=== PATIENT | male | born 1985 | race Caucasian/White ===

== ENCOUNTER 2017-02-15 10:37 | Emergency (ER) | payer SELFPAY ==
--- NOTE | 2017-02-15 11:43 | ED CLINICAL REPORT ---
Clinical Report - Physicians/Mid Levels [facility] [address] [place] [address] 02/15/2017 10:41 Patient: EMANI MCDONALD Time Seen: 10:47. Arrived- By private vehicle. Historian- patient. HISTORY OF PRESENT ILLNESS Chief Complaint: SORE THROAT. This started about 4 - 5 days ago and is still present. It was gradual in onset and has been constant. Pain described as moderate. The patient has had a severe sore throat with pain upon swallowing. Similar symptoms previously: Several times. Diagnosed as streptococcal infection; peritonsillar abcess. REVIEW OF SYSTEMS No chills, fever, sweats, calf pain or chest pain. No cough, difficulty breathing, pedal edema, palpitations or abdominal pain. No constipation, diarrhea, nausea, vomiting or urinary problems. No skin rash. All systems otherwise negative, except as recorded above. SOCIAL HISTORY Current every day light tobacco smoker (cigarette)- less than 1/2 a pack per day. No alcohol use or drug use. FAMILY HISTORY Denies family medical history. ADDITIONAL NOTES The nursing notes have been reviewed. PHYSICAL EXAM Vital Signs: 02/15/2017 10:49 BP: 135/93. HR: 90. RR: 16. O2 saturation: 99%. Temp: 98.5 F. Pain level now: 7/10. Have been reviewed. Appearance: Alert. No acute distress. Eyes: Pupils equal, round and reactive to light. ENT: Ears normal. Nose normal. Pharyngeal erythema. Medium sized right-sided peritonsillar mass. No trismus present. Neck: Mild right anterior neck lymphadenopathy present. Trachea midline. Thyroid normal. Neck supple. CVS: Normal heart rate and rhythm. Heart sounds normal. Respiratory: No respiratory distress. Breath sounds normal. Abdomen: Soft. No organomegaly. Skin: Normal skin color. No rash. Normal skin turgor. Extremities: Extremities exhibit normal ROM. Extremities nontender. No calf tenderness. LABS, X-RAYS, AND EKG Laboratory Tests: Culture, Strep Screen: (THIAGO: 02/15/2017 10:55) ( MsgRcvd 02/15/2017 11:08) Final results Test Result Flag Units (Reference) RAPID STREP SCREEN - THROAT DATE: 02/15/17 NEGATIVE SCREEN: 1 . PROGRESS AND PROCEDURES Course of Care: Patient is stable. Patient/family counseled. Old medical records ordered. Old records unavailable. Disposition: Discharged. Condition: stable. CLINICAL IMPRESSION Right peritonsillar abscess. INSTRUCTIONS No driving or operating machinery while taking medication. Drink plenty of fluids. Warnings: Further evaluation is necessary. GENERAL WARNINGS: Return or contact your physician immediately if your condition worsens or changes unexpectedly, if not improving as expected, or if other problems arise. Prescription Medications: Hydrocodone/APAP 5mg/325mg: take 1 to 2 orally every 6 hours as needed for pain. Dispense fifteen (15). No refills. Zithromax 250 mg tablets: take 2 orally today, followed by 1 daily for the next 4 days. No refills. Substitution is permissible. Understanding of the discharge instructions verbalized by patient. Follow-up with: Marquis Agarwal MD, ENT, , [address], , [place], [id number] Follow up tomorrow. Call for the next available appointment. (Electronically signed by Arnold Anderson MD 02/15/2017 13:32)
--- NOTE | 2017-02-15 11:43 | ED ORDER SUMMARY ---
..... Patient: EMANI MCDONALD OrderSheet Located Within [facility] VisitID: [id number] [place] [address] 31y, M Registration Date/Time: 02/15/2017 ORDER SHEET Weight: 81.6 kg (stated) Allergies: Penicillins GENERAL ORDERS: Culture, Strep Screen Urgent (10:48 02/15/2017 Brayden RO) (Ack 10:50 PWeiler ER Tech1) (10:55 MWinterer R.N.) Monoscreen Urgent (11:11 02/15/2017 Brayden RO) (Ack 11:13 PWeiler ER Tech1) (11:45 MWinterer R.N.) MEDICATION ORDERS: Decadron IM 20 mg (NOW) (11:31 02/15/2017 Brayden RO) (Ack 11:37 MWinterer R.N.) (11:46 MWinterer R.N.) IV FLUIDS: ORDER SHEET NOTES: [Electronically signed by Ana Gamboa R.N. (12:47 02/15/2017)] [Electronically signed by Arnold Anderson MD (13:32 02/15/2017)] [Electronically locked/signed by Ana Gamboa R.N. (12:47 02/15/2017)]
--- NOTE | 2017-02-15 11:43 | ED NURSING NOTES ---
Clinical Report - Nurses [facility] [address] [place] [address] 02/15/2017 10:41 Patient: EMANI MCDONALD TRIAGE Acuity: LEVEL 4. Chief Complaint: SORE THROAT. Alert. No acute distress. SEPSIS SCREEN: Sepsis Screen. Negative (no infection suspected/documented). --10:52 Ana Gamboa R.N. 10:49 02/15/17. BP: 135/93. HR: 90. RR: 16. O2 saturation: 99% on room air. Temp: 98.5 F (oral). Pain level now: 03/07. --10:52 Ana Gamboa R.N. Weight: 81.6 kg stated. Height/Length: 68 inches Per Patient. BMI: 27.4. --10:50 Ana Gamboa R.N. Medications None. --10:50 Ana Gamboa R.N. Medication/allergy information source: the patient. --10:52 Ana Gamboa R.N. Allergies Penicillins. --10:50 Ana Gamboa R.N. History Arrived by private vehicle. Historian: patient. Accompanied by brother. Primary physician (NONE). Onset. (4 days ago). 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 PAST MEDICAL HX: Immunizations: up-to-date. SOCIAL HX: Current every day light tobacco smoker- less than 1/2 a pack per day. No alcohol use or drug use. FALL RISK ASSESSMENT: Fall risk assessment completed. No fall risk identified. NUTRITIONAL RISK ASSESSMENT: The nutritional risk assessment revealed no deficiencies. FUNCTIONAL ASSESSMENT: Functional assessment: no impairments noted. LEARNING NEEDS ASSESSMENT: The learning needs assessment revealed no barriers. SKIN INTEGRITY ASSESSMENT: Skin integrity risk assessment completed. No skin integrity risk identified. --10:52 Ana Gamboa R.N. Assessment GENERAL / NEURO / PSYCH: Alert. Oriented X 4. Appears in no acute distress. Patient appears calm and cooperative. RESPIRATORY: Respirations not labored. CVS: Capillary refill less than 2 seconds. GI / : Abdomen soft and nontender. SKIN: Mucous membranes are pink. Skin is warm and dry. --10:52 Ana Gamboa R.N. Interventions ID band on patient. To treatment room. --10:52 Ana Gamboa R.N. NURSING PROGRESS NOTES 10:55 02/15/17. Checked patient name and birthdate: patient confirmed. Throat swab obtained for rapid strep; labeled in the presence of the patient and sent to lab. --10:55 Ana Gamboa R.N. 11:46 02/15/2017 Decadron (Dexamethasone Sodium Phosphate) IM 20 mg given. Given in the right gluteus anitha (split dose). Allergies verified and confirmed 5 rights. --11:46 Ana Gamboa R.N. DISPOSITION / DISCHARGE Departure time: 11:50 Feb 15 2017. Condition at departure: improved and stable. No learning barriers present. Discharge instructions provided and reviewed with the patient. Reviewed medication(s) side effects, precautions, dosing and course information. Prescription(s) given to the patient. Patient verbalized understanding. Written instructions provided in Dutch. The patient was discharged by the physician. He was discharged home. He left the Emergency Department ambulatory and via private vehicle. Patient driving. --12:47 Ana Gamboa R.N. Locked/Released at 02/15/2017 12:47 by Ana Gamboa R.N.
--- NOTE | 2017-02-15 11:43 | ED NURSING NOTES ---
Clinical Report - Nurses [facility] [address] [place] [address] 02/15/2017 10:41 Patient: EMANI MCDONALD TRIAGE Acuity: LEVEL 4. Chief Complaint: SORE THROAT. Alert. No acute distress. SEPSIS SCREEN: Sepsis Screen. Negative (no infection suspected/documented). --10:52 Ana Gamboa R.N. 10:49 02/15/17. BP: 135/93. HR: 90. RR: 16. O2 saturation: 99% on room air. Temp: 98.5 F (oral). Pain level now: 03/07. --10:52 Ana Gamboa R.N. Weight: 81.6 kg stated. Height/Length: 68 inches Per Patient. BMI: 27.4. --10:50 Ana Gamboa R.N. Medications None. --10:50 Ana Gamboa R.N. Medication/allergy information source: the patient. --10:52 Ana Gamboa R.N. Allergies Penicillins. --10:50 Ana Gamboa R.N. History Arrived by private vehicle. Historian: patient. Accompanied by brother. Primary physician (NONE). Onset. (4 days ago). 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 PAST MEDICAL HX: Immunizations: up-to-date. SOCIAL HX: Current every day light tobacco smoker- less than 1/2 a pack per day. No alcohol use or drug use. FALL RISK ASSESSMENT: Fall risk assessment completed. No fall risk identified. NUTRITIONAL RISK ASSESSMENT: The nutritional risk assessment revealed no deficiencies. FUNCTIONAL ASSESSMENT: Functional assessment: no impairments noted. LEARNING NEEDS ASSESSMENT: The learning needs assessment revealed no barriers. SKIN INTEGRITY ASSESSMENT: Skin integrity risk assessment completed. No skin integrity risk identified. --10:52 Ana Gamboa R.N. Assessment GENERAL / NEURO / PSYCH: Alert. Oriented X 4. Appears in no acute distress. Patient appears calm and cooperative. RESPIRATORY: Respirations not labored. CVS: Capillary refill less than 2 seconds. GI / : Abdomen soft and nontender. SKIN: Mucous membranes are pink. Skin is warm and dry. --10:52 Ana Gamboa R.N. Interventions ID band on patient. To treatment room. --10:52 Ana Gamboa R.N. NURSING PROGRESS NOTES 10:55 02/15/17. Checked patient name and birthdate: patient confirmed. Throat swab obtained for rapid strep; labeled in the presence of the patient and sent to lab. --10:55 Ana Gamboa R.N. 11:46 02/15/2017 Decadron (Dexamethasone Sodium Phosphate) IM 20 mg given. Given in the right gluteus anitha (split dose). Allergies verified and confirmed 5 rights. --11:46 Ana Gamboa R.N. DISPOSITION / DISCHARGE Departure time: 11:50 Feb 15 2017. Condition at departure: improved and stable. No learning barriers present. Discharge instructions provided and reviewed with the patient. Reviewed medication(s) side effects, precautions, dosing and course information. Prescription(s) given to the patient. Patient verbalized understanding. Written instructions provided in Montenegrin. The patient was discharged by the physician. He was discharged home. He left the Emergency Department ambulatory and via private vehicle. Patient driving. --12:47 Ana Gamboa R.N. Locked/Released at 02/15/2017 12:47 by Ana Gamboa R.N.
--- NOTE | 2017-02-15 11:43 | ED ORDER SUMMARY ---
..... Patient: EMANI MCDONALD OrderSheet [facility] VisitID: [id number] [place] [address] 31y, M Registration Date/Time: 02/15/2017 ORDER SHEET Weight: 81.6 kg (stated) Allergies: Penicillins GENERAL ORDERS: Culture, Strep Screen Urgent (10:48 02/15/2017 Brayden RO) (Ack 10:50 PWeiler ER Tech1) (10:55 MWinterer R.N.) Monoscreen Urgent (11:11 02/15/2017 Brayden RO) (Ack 11:13 PWeiler ER Tech1) (11:45 MWinterer R.N.) MEDICATION ORDERS: Decadron IM 20 mg (NOW) (11:31 02/15/2017 Bray[address] RO) (Ack 11:37 MWinterer R.N.) (11:46 MWinterer R.N.) IV FLUIDS: ORDER SHEET NOTES: [Electronically signed by Ana Gamboa R.N. (12:47 02/15/2017)] [Electronically signed by Arnold Anderson MD (13:32 02/15/2017)] [Electronically locked/signed by Ana Gamboa R.N. (12:47 02/15/2017)]
--- NOTE | 2017-02-15 11:43 | ED CLINICAL REPORT ---
Clinical Report - Physicians/Mid Levels [facility] [address] [place] [address] 02/15/2017 10:41 Patient: EMANI MCDONALD Time Seen: 10:47. Arrived- By private vehicle. Historian- patient. HISTORY OF PRESENT ILLNESS Chief Complaint: SORE THROAT. This started about 4 - 5 days ago and is still present. It was gradual in onset and has been constant. Pain described as moderate. The patient has had a severe sore throat with pain upon swallowing. Similar symptoms previously: Several times. Diagnosed as streptococcal infection; peritonsillar abcess. REVIEW OF SYSTEMS No chills, fever, sweats, calf pain or chest pain. No cough, difficulty breathing, pedal edema, palpitations or abdominal pain. No constipation, diarrhea, nausea, vomiting or urinary problems. No skin rash. All systems otherwise negative, except as recorded above. SOCIAL HISTORY Current every day light tobacco smoker (cigarette)- less than 1/2 a pack per day. No alcohol use or drug use. FAMILY HISTORY Denies family medical history. ADDITIONAL NOTES The nursing notes have been reviewed. PHYSICAL EXAM Vital Signs: 02/15/2017 10:49 BP: 135/93. HR: 90. RR: 16. O2 saturation: 99%. Temp: 98.5 F. Pain level now: 7/10. Have been reviewed. Appearance: Alert. No acute distress. Eyes: Pupils equal, round and reactive to light. ENT: Ears normal. Nose normal. Pharyngeal erythema. Medium sized right-sided peritonsillar mass. No trismus present. Neck: Mild right anterior neck lymphadenopathy present. Trachea midline. Thyroid normal. Neck supple. CVS: Normal heart rate and rhythm. Heart sounds normal. Respiratory: No respiratory distress. Breath sounds normal. Abdomen: Soft. No organomegaly. Skin: Normal skin color. No rash. Normal skin turgor. Extremities: Extremities exhibit normal ROM. Extremities nontender. No calf tenderness. LABS, X-RAYS, AND EKG Laboratory Tests: Culture, Strep Screen: (THIAGO: 02/15/2017 10:55) ( MsgRcvd 02/15/2017 11:08) Final results Test Result Flag Units (Reference) RAPID STREP SCREEN - THROAT DATE: 02/15/17 NEGATIVE SCREEN: 1 . PROGRESS AND PROCEDURES Course of Care: Patient is stable. Patient/family counseled. Old medical records ordered. Old records unavailable. Disposition: Discharged. Condition: stable. CLINICAL IMPRESSION Right peritonsillar abscess. INSTRUCTIONS No driving or operating machinery while taking medication. Drink plenty of fluids. Warnings: Further evaluation is necessary. GENERAL WARNINGS: Return or contact your physician immediately if your condition worsens or changes unexpectedly, if not improving as expected, or if other problems arise. Prescription Medications: Hydrocodone/APAP 5mg/325mg: take 1 to 2 orally every 6 hours as needed for pain. Dispense fifteen (15). No refills. Zithromax 250 mg tablets: take 2 orally today, followed by 1 daily for the next 4 days. No refills. Substitution is permissible. Understanding of the discharge instructions verbalized by patient. Follow-up with: Marquis Agarwal MD, ENT, , [address], , [place], [id number] Follow up tomorrow. Call for the next available appointment. (Electronically signed by Arnold Anderson MD 02/15/2017 13:32)
--- NOTE | 2017-02-15 13:32 | ED DISCHARGE INSTRUCTIONS ---
Patient: EMANI MCDONALD General Instructions [facility] VisitID: [id number] [address] [place] [address] 31y, M Registration Date/Time: 02/15/2017 Right peritonsillar abscess. INSTRUCTIONS No driving or operating machinery while taking medication. Drink plenty of fluids. Warnings: Further evaluation is necessary. GENERAL WARNINGS: Return or contact your physician immediately if your condition worsens or changes unexpectedly, if not improving as expected, or if other problems arise. Prescription Medications: Hydrocodone/APAP 5mg/325mg: take 1 to 2 orally every 6 hours as needed for pain. Dispense fifteen (15). No refills. Zithromax 250 mg tablets: take 2 orally today, followed by 1 daily for the next 4 days. No refills. Substitution is permissible. Understanding of the discharge instructions verbalized by patient. Follow-up with: Marquis Agarwal MD, ENT, , [address] , [place], [id number] Follow up tomorrow. Call for the next available appointment. ADDITIONAL INFORMATION Peritonsillar Abscess Your throat pain is due to an infection in and around the tonsils. This is due to a bacterial infection causing an abscess (collection of pus) to form around the tonsil. This abscess can cause severe pain when swallowing or trying to open your mouth wide. An early abscess may be treated with antibiotics alone. A larger abscess will require surgical drainage plus antibiotics. The bacteria causing this condition may be contagious. It can be spread by coughing, kissing or touching others after you touch your mouth or nose. It may produce a sore throat in others (not necessarily a peritonsillar abscess). Home Care: 1) Take your antibiotics until finished, even if you feel better after the first few days of treatment. This is very important to prevent later problems from this infection (such as heart or kidney disease). 2) If your symptoms are severe, rest at home for the first 2-3 days. 3) Children : Use Tylenol (acetaminophen) for fever, fussiness or discomfort. In infants over six months of age, you may use ibuprofen (Children's Motrin) instead of Tylenol. (Aspirin should never be used in anyone under 18 years of age who is ill with a fever. It may cause severe liver damage.) Adults : For muscle aching or throat pain, you may take ibuprofen (Advil, Motrin) or Tylenol (acetaminophen) unless another pain medicine was prescribed. [ NOTE : If you have chronic liver or kidney disease or ever had a stomach ulcer or GI bleeding, talk with your doctor before using these medicines.] (Aspirin should never be used in anyone under 18 years of age who is ill with a fever. It may cause severe liver damage.) 4) Throat lozenges or sprays (Chloraseptic and others) may help reduce throat pain. This is especially useful just before meals. 5) Gargle with warm salt water four times a day for the first two days. Dissolve 1/2 teaspoon of salt in 1 glass of hot water. Follow Up with your doctor or this facility as advised within 1-2 days. If you are treated with antibiotics alone, it is very important to be rechecked within 24 hours to be sure that the abscess is not getting bigger. Get Prompt Medical Attention if any of the following occur: -- Fever over 100.5 F (38.0 C) oral by the third day of treatment -- Throat pain, neck pain or headache that gets worse -- Unable to swallow liquids or take your medicine -- Trouble breathing or noisy breathing Hydrocodone Bitartrate, Acetaminophen Oral tablet What is this medicine? ACETAMINOPHEN; HYDROCODONE (a set a FAIZA funmi fen; alex droe KOE done) is a pain reliever. It is used to treat mild to moderate pain. How should I use this medicine? Take this medicine by mouth. Swallow it with a full glass of water. Follow the directions on the prescription label. If the medicine upsets your stomach, take the medicine with food or milk. Do not take more than you are told to take. Talk to your rehabilitation center manager regarding the use of this medicine in children. This medicine is not approved for use in children. What side effects may I notice from receiving this medicine? Side effects that you should report to your doctor or health associate director career services as soon as possible: allergic reactions like skin rash, itching or hives, swelling of the face, lips, or tongue breathing problems confusion feeling faint or lightheaded, falls stomach pain yellowing of the eyes or skin Side effects that usually do not require medical attention (report to your doctor or health associate director career services if they continue or are bothersome): nausea, vomiting stomach upset What may interact with this medicine? alcohol antihistamines isoniazid medicines for depression, anxiety, or psychotic disturbances medicines for sleep muscle relaxants naltrexone narcotic medicines (opiates) for pain phenobarbital ritonavir tramadol What if I miss a dose? If you miss a dose, take it as soon as you can. If it is almost time for your next dose, take only that dose. Do not take double or extra doses. Where should I keep my medicine? Keep out of the reach of children. This medicine can be abused. Keep your medicine in a safe place to protect it from theft. Do not share this medicine with anyone. Selling or giving away this medicine is dangerous and against the law. Store at room temperature between 15 and 30 degrees C (59 and 86 degrees F). Protect from light. Keep container tightly closed. Throw away any unused medicine after the expiration date. Discard unused medicine and used packaging carefully. Pets and children can be harmed if they find used or lost packages. What should I tell my health care provider before I take this medicine? They need to know if you have any of these conditions: brain tumor Crohn's disease, inflammatory bowel disease, or ulcerative colitis drink more than 3 alcohol-containing drinks per day drug abuse or addiction head injury heart or circulation problems kidney disease or problems going to the bathroom liver disease lung disease, asthma, or breathing problems an unusual or allergic reaction to acetaminophen, hydrocodone, other opioid analgesics, other medicines, foods, dyes, or preservatives or trying to get breast-feeding What should I watch for while using this medicine? Tell your doctor or health associate director career services if your pain does not go away, if it gets worse, or if you have new or a different type of pain. You may develop tolerance to the medicine. Tolerance means that you will need a higher dose of the medicine for pain relief. Tolerance is normal and is expected if you take the medicine for a long time. Do not suddenly stop taking your medicine because you may develop a severe reaction. Your body becomes used to the medicine. This does NOT mean you are addicted. Addiction is a behavior related to getting and using a drug for a non-medical reason. If you have pain, you have a medical reason to take pain medicine. Your doctor will tell you how much medicine to take. If your doctor wants you to stop the medicine, the dose will be slowly lowered over time to avoid any side effects. You may get drowsy or dizzy when you first start taking the medicine or change doses. Do not drive, use machinery, or do anything that may be dangerous until you know how the medicine affects you. Stand or sit up slowly. There are different types of narcotic medicines (opiates) for pain. If you take more than one type at the same time, you may have more side effects. Give your health care provider a list of all medicines you use. Your doctor will tell you how much medicine to take. Do not take more medicine than directed. Call emergency for help if you have problems breathing. The medicine will cause constipation. Try to have a bowel movement at least every 2 to 3 days. If you do not have a bowel movement for 3 days, call your doctor or health associate director career services. Too much acetaminophen can be very dangerous. Do not take Tylenol (acetaminophen) or medicines that contain acetaminophen with this medicine. Many non-prescription medicines contain acetaminophen. Always read the labels carefully. Azithromycin Oral tablet What is this medicine? AZITHROMYCIN (az ith gina TOMMY sin) is a macrolide antibiotic. It is used to treat or prevent certain kinds of bacterial infections. It will not work for colds, flu, or other viral infections. How should I use this medicine? Take this medicine by mouth with a full glass of water. Follow the directions on the prescription label. The tablets can be taken with food or on an empty stomach. If the medicine upsets your stomach, take it with food. Take your medicine at regular intervals. Do not take your medicine more often than directed. Take all of your medicine as directed even if you think your are better. Do not skip doses or stop your medicine early. Talk to your rehabilitation center manager regarding the use of this medicine in children. Special care may be needed. What side effects may I notice from receiving this medicine? Side effects that you should report to your doctor or health associate director career services as soon as possible: allergic reactions like skin rash, itching or hives, swelling of the face, lips, or tongue confusion, nightmares or hallucinations dark urine difficulty breathing hearing loss irregular heartbeat or chest pain pain or difficulty passing urine redness, blistering, peeling or loosening of the skin, including inside the mouth white patches or sores in the mouth yellowing of the eyes or skin Side effects that usually do not require medical attention (report to your doctor or health associate director career services if they continue or are bothersome): diarrhea dizziness, drowsiness headache stomach upset or vomiting tooth discoloration vaginal irritation What may interact with this medicine? Do not take this medicine with any of the following medications: lincomycin This medicine may also interact with the following medications: amiodarone antacids cyclosporine digoxin magnesium nelfinavir phenytoin warfarin What if I miss a dose? If you miss a dose, take it as soon as you can. If it is almost time for your next dose, take only that dose. Do not take double or extra doses. Where should I keep my medicine? Keep out of the reach of children. Store at room temperature between 15 and 30 degrees C (59 and 86 degrees F). Throw away any unused medicine after the expiration date. What should I tell my health care provider before I take this medicine? They need to know if you have any of these conditions: kidney disease liver disease irregular heartbeat or heart disease an unusual or allergic reaction to azithromycin, erythromycin, other macrolide antibiotics, foods, dyes, or preservatives or trying to get breast-feeding What should I watch for while using this medicine? Tell your doctor or health associate director career services if your symptoms do not improve. Do not treat diarrhea with over the counter products. Contact your doctor if you have diarrhea that lasts more than 2 days or if it is severe and watery. This medicine can make you more sensitive to the sun. Keep out of the sun. If you cannot avoid being in the sun, wear protective clothing and use sunscreen. Do not use sun lamps or tanning beds/booths. You have been given the following additional information: Peritonsillar Abscess Hydrocodone Bitartrate, Acetaminophen Oral tablet Azithromycin Oral tablet No driving or operating machinery while taking medication. (Electronically signed by Arnold Anderson MD 02/15/2017 13:32)
--- NOTE | 2017-02-15 13:32 | ED DISCHARGE INSTRUCTIONS ---
Patient: EMANI MCDONALD General Instructions [facility] VisitID: [id number] [address] [place] [address] 31y, M Registration Date/Time: 02/15/2017 Right peritonsillar abscess. INSTRUCTIONS No driving or operating machinery while taking medication. Drink plenty of fluids. Warnings: Further evaluation is necessary. GENERAL WARNINGS: Return or contact your physician immediately if your condition worsens or changes unexpectedly, if not improving as expected, or if other problems arise. Prescription Medications: Hydrocodone/APAP 5mg/325mg: take 1 to 2 orally every 6 hours as needed for pain. Dispense fifteen (15). No refills. Zithromax 250 mg tablets: take 2 orally today, followed by 1 daily for the next 4 days. No refills. Substitution is permissible. Understanding of the discharge instructions verbalized by patient. Follow-up with: Marquis Agarwal MD, ENT, , [address] , , [place], [id number] Follow up tomorrow. Call for the next available appointment. ADDITIONAL INFORMATION Peritonsillar Abscess Your throat pain is due to an infection in and around the tonsils. This is due to a bacterial infection causing an abscess (collection of pus) to form around the tonsil. This abscess can cause severe pain when swallowing or trying to open your mouth wide. An early abscess may be treated with antibiotics alone. A larger abscess will require surgical drainage plus antibiotics. The bacteria causing this condition may be contagious. It can be spread by coughing, kissing or touching others after you touch your mouth or nose. It may produce a sore throat in others (not necessarily a peritonsillar abscess). Home Care: 1) Take your antibiotics until finished, even if you feel better after the first few days of treatment. This is very important to prevent later problems from this infection (such as heart or kidney disease). 2) If your symptoms are severe, rest at home for the first 2-3 days. 3) Children : Use Tylenol (acetaminophen) for fever, fussiness or discomfort. In infants over six months of age, you may use ibuprofen (Children's Motrin) instead of Tylenol. (Aspirin should never be used in anyone under 18 years of age who is ill with a fever. It may cause severe liver damage.) Adults : For muscle aching or throat pain, you may take ibuprofen (Advil, Motrin) or Tylenol (acetaminophen) unless another pain medicine was prescribed. [ NOTE : If you have chronic liver or kidney disease or ever had a stomach ulcer or GI bleeding, talk with your doctor before using these medicines.] (Aspirin should never be used in anyone under 18 years of age who is ill with a fever. It may cause severe liver damage.) 4) Throat lozenges or sprays (Chloraseptic and others) may help reduce throat pain. This is especially useful just before meals. 5) Gargle with warm salt water four times a day for the first two days. Dissolve 1/2 teaspoon of salt in 1 glass of hot water. Follow Up with your doctor or this facility as advised within 1-2 days. If you are treated with antibiotics alone, it is very important to be rechecked within 24 hours to be sure that the abscess is not getting bigger. Get Prompt Medical Attention if any of the following occur: -- Fever over 100.5 F (38.0 C) oral by the third day of treatment -- Throat pain, neck pain or headache that gets worse -- Unable to swallow liquids or take your medicine -- Trouble breathing or noisy breathing Hydrocodone Bitartrate, Acetaminophen Oral tablet What is this medicine? ACETAMINOPHEN; HYDROCODONE (a set a FAIZA funmi fen; alex droe KOE done) is a pain reliever. It is used to treat mild to moderate pain. How should I use this medicine? Take this medicine by mouth. Swallow it with a full glass of water. Follow the directions on the prescription label. If the medicine upsets your stomach, take the medicine with food or milk. Do not take more than you are told to take. Talk to your salvage engineer regarding the use of this medicine in children. This medicine is not approved for use in children. What side effects may I notice from receiving this medicine? Side effects that you should report to your doctor or health critical care physician as soon as possible: allergic reactions like skin rash, itching or hives, swelling of the face, lips, or tongue breathing problems confusion feeling faint or lightheaded, falls stomach pain yellowing of the eyes or skin Side effects that usually do not require medical attention (report to your doctor or health critical care physician if they continue or are bothersome): nausea, vomiting stomach upset What may interact with this medicine? alcohol antihistamines isoniazid medicines for depression, anxiety, or psychotic disturbances medicines for sleep muscle relaxants naltrexone narcotic medicines (opiates) for pain phenobarbital ritonavir tramadol What if I miss a dose? If you miss a dose, take it as soon as you can. If it is almost time for your next dose, take only that dose. Do not take double or extra doses. Where should I keep my medicine? Keep out of the reach of children. This medicine can be abused. Keep your medicine in a safe place to protect it from theft. Do not share this medicine with anyone. Selling or giving away this medicine is dangerous and against the law. Store at room temperature between 15 and 30 degrees C (59 and 86 degrees F). Protect from light. Keep container tightly closed. Throw away any unused medicine after the expiration date. Discard unused medicine and used packaging carefully. Pets and children can be harmed if they find used or lost packages. What should I tell my health care provider before I take this medicine? They need to know if you have any of these conditions: brain tumor Crohn's disease, inflammatory bowel disease, or ulcerative colitis drink more than 3 alcohol-containing drinks per day drug abuse or addiction head injury heart or circulation problems kidney disease or problems going to the bathroom liver disease lung disease, asthma, or breathing problems an unusual or allergic reaction to acetaminophen, hydrocodone, other opioid analgesics, other medicines, foods, dyes, or preservatives or trying to get breast-feeding What should I watch for while using this medicine? Tell your doctor or health critical care physician if your pain does not go away, if it gets worse, or if you have new or a different type of pain. You may develop tolerance to the medicine. Tolerance means that you will need a higher dose of the medicine for pain relief. Tolerance is normal and is expected if you take the medicine for a long time. Do not suddenly stop taking your medicine because you may develop a severe reaction. Your body becomes used to the medicine. This does NOT mean you are addicted. Addiction is a behavior related to getting and using a drug for a non-medical reason. If you have pain, you have a medical reason to take pain medicine. Your doctor will tell you how much medicine to take. If your doctor wants you to stop the medicine, the dose will be slowly lowered over time to avoid any side effects. You may get drowsy or dizzy when you first start taking the medicine or change doses. Do not drive, use machinery, or do anything that may be dangerous until you know how the medicine affects you. Stand or sit up slowly. There are different types of narcotic medicines (opiates) for pain. If you take more than one type at the same time, you may have more side effects. Give your health care provider a list of all medicines you use. Your doctor will tell you how much medicine to take. Do not take more medicine than directed. Call emergency for help if you have problems breathing. The medicine will cause constipation. Try to have a bowel movement at least every 2 to 3 days. If you do not have a bowel movement for 3 days, call your doctor or health critical care physician. Too much acetaminophen can be very dangerous. Do not take Tylenol (acetaminophen) or medicines that contain acetaminophen with this medicine. Many non-prescription medicines contain acetaminophen. Always read the labels carefully. Azithromycin Oral tablet What is this medicine? AZITHROMYCIN (az ith gina TOMMY sin) is a macrolide antibiotic. It is used to treat or prevent certain kinds of bacterial infections. It will not work for colds, flu, or other viral infections. How should I use this medicine? Take this medicine by mouth with a full glass of water. Follow the directions on the prescription label. The tablets can be taken with food or on an empty stomach. If the medicine upsets your stomach, take it with food. Take your medicine at regular intervals. Do not take your medicine more often than directed. Take all of your medicine as directed even if you think your are better. Do not skip doses or stop your medicine early. Talk to your salvage engineer regarding the use of this medicine in children. Special care may be needed. What side effects may I notice from receiving this medicine? Side effects that you should report to your doctor or health critical care physician as soon as possible: allergic reactions like skin rash, itching or hives, swelling of the face, lips, or tongue confusion, nightmares or hallucinations dark urine difficulty breathing hearing loss irregular heartbeat or chest pain pain or difficulty passing urine redness, blistering, peeling or loosening of the skin, including inside the mouth white patches or sores in the mouth yellowing of the eyes or skin Side effects that usually do not require medical attention (report to your doctor or health critical care physician if they continue or are bothersome): diarrhea dizziness, drowsiness headache stomach upset or vomiting tooth discoloration vaginal irritation What may interact with this medicine? Do not take this medicine with any of the following medications: lincomycin This medicine may also interact with the following medications: amiodarone antacids cyclosporine digoxin magnesium nelfinavir phenytoin warfarin What if I miss a dose? If you miss a dose, take it as soon as you can. If it is almost time for your next dose, take only that dose. Do not take double or extra doses. Where should I keep my medicine? Keep out of the reach of children. Store at room temperature between 15 and 30 degrees C (59 and 86 degrees F). Throw away any unused medicine after the expiration date. What should I tell my health care provider before I take this medicine? They need to know if you have any of these conditions: kidney disease liver disease irregular heartbeat or heart disease an unusual or allergic reaction to azithromycin, erythromycin, other macrolide antibiotics, foods, dyes, or preservatives or trying to get breast-feeding What should I watch for while using this medicine? Tell your doctor or health critical care physician if your symptoms do not improve. Do not treat diarrhea with over the counter products. Contact your doctor if you have diarrhea that lasts more than 2 days or if it is severe and watery. This medicine can make you more sensitive to the sun. Keep out of the sun. If you cannot avoid being in the sun, wear protective clothing and use sunscreen. Do not use sun lamps or tanning beds/booths. You have been given the following additional information: Peritonsillar Abscess Hydrocodone Bitartrate, Acetaminophen Oral tablet Azithromycin Oral tablet No driving or operating machinery while taking medication. (Electronically signed by Arnold Anderson MD 02/15/2017 13:32)
--- NOTE | 2017-02-15 13:32 | ED MAR SUMMARY ---
..... Medication Administration Record [facility] [address] [place] [address] Patient: EMANI MCDONALD Visit ID: [id number] 31y, M Weight: 81.6 kg Height/Length: 68 in BMI: 27.4 ALLERGIES: Penicillins Given 11:46 02/15/2017 Ana Gamboa R.N. Medication Administered: DECADRON [IM] (DEXAMETHASONE SODIUM PHOSPHATE), Dose: 20 mg IM. Medication Ordered: Decadron IM 20 mg (NOW).
--- NOTE | 2017-02-15 13:32 | ED MAR SUMMARY ---
..... Medication Administration Record [facility] [address] [place] [address] Patient: EMANI MCDONALD Visit ID: [id number] 31y, M Weight: 81.6 kg Height/Length: 68 in BMI: 27.4 ALLERGIES: Penicillins Given 11:46 02/15/2017 Ana Gamboa R.N. Medication Administered: DECADRON [IM] (DEXAMETHASONE SODIUM PHOSPHATE), Dose: 20 mg IM. Medication Ordered: Decadron IM 20 mg (NOW).
--- NOTE | 2017-02-15 13:33 | ED MED RECONCILIATION SUMMARY ---
Patient: EMANI MCDONALD Medication Reconciliation Report [facility] VisitID: [id number] [address] [place] [address] 31y, M Registration Date/Time: 02/15/2017 Weight: 81.6 kg Height/Length: 68 in. BMI: 27.4 ALLERGIES: Penicillins The patient's Home Medications are listed below: NONE. The source(s) of the original Home Medication information: patient The following Medications were given to the patient in the Emergency Department: Decadron [IM] IM 20 mg, administered: 02/15/2017 11:46:00 AM The following Medications were prescribed to the patient: Hydrocodone/APAP 5mg/325mg: take 1 to 2 orally every 6 hours as needed for pain. Dispense fifteen (15). No refills. -- Arnold Anderson MD Zithromax 250 mg tablets: take 2 orally today, followed by 1 daily for the next 4 days. No refills. Substitution is permissible. -- Arnold Anderson MD
--- NOTE | 2017-02-15 13:33 | ED MED RECONCILIATION SUMMARY ---
Patient: EMANI MCDONALD Medication Reconciliation Report [facility] VisitID: [id number] [address] [place] [address] 31y, M Registration Date/Time: 02/15/2017 Weight: 81.6 kg Height/Length: 68 in. BMI: 27.4 ALLERGIES: Penicillins The patient's Home Medications are listed below: NONE. The source(s) of the original Home Medication information: patient The following Medications were given to the patient in the Emergency Department: Decadron [IM] IM 20 mg, administered: 02/15/2017 11:46:00 AM The following Medications were prescribed to the patient: Hydrocodone/APAP 5mg/325mg: take 1 to 2 orally every 6 hours as needed for pain. Dispense fifteen (15). No refills. -- Arnold Anderson MD Zithromax 250 mg tablets: take 2 orally today, followed by 1 daily for the next 4 days. No refills. Substitution is permissible. -- Arnold Anderson MD
== END 2017-02-15 11:50 | disposition home or self-care (01) ==
LOC: ED SRH 10:37
DX: J36 Peritonsillar abscess (principal); F17.210 Nicotine dependence, cigarettes, uncomplicated; Z88.0 Allergy status to penicillin
CPT/HCPCS: 90074; 90154; 90159; 90627; 98370